=== PATIENT | female | born 1980 | race Caucasian/White ===

== ENCOUNTER 2017-12-16 12:32 | Emergency (ER) | payer OTHER ==
[~2017-12-16] VITALS: Ht 165.1 cm; Wt 62.6 kg
[2017-12-16 12:35] VITALS: BP 112/72
[2017-12-16] MEDS ORDERED: CYCLOBENZAPRINE 10 MG TAB PO ONE (13:40)
[2017-12-16 14:03] VITALS: BP 124/75
== END 2017-12-16 14:02 | disposition home or self-care (01) ==
LOC: MED 12:32
DX: M43.6 Torticollis (principal)
CPT/HCPCS: 99283